=== PATIENT | female | born 1950 | race Caucasian/White ===

== ENCOUNTER 2020-11-13 13:00 | Day surgery (SDC) | payer BC ==
[~2020-11-13] VITALS: Ht 165.1 cm; Wt 80.7 kg
[2020-11-13] MEDS ORDERED: LISINOPRIL20 MG PO (13:25)
[2020-11-13] MEDS ORDERED: POTASSIUM CITR10 MEQ PO (13:25)
[2020-11-13] MEDS ORDERED: ATORVASTATIN CA20 MG PO (13:25)
[2020-11-13] MEDS ORDERED: METOPROLOL SUCC50 MG PO (13:25)
[2020-11-13] MEDS ORDERED: YUVAFEM10 MCG PV (13:26)
--- NOTE | 2020-11-13 14:47 | NUR ---
11/13/20 Nova[facility] Velia Munoz 1445- PT TO PACU IN LL POSITION. OPENS EYES TO VERBAL STIMULI. DENIES PAIN. PT ENCOURAGED TO PASS GAS. BREATHING EASY AND UNLABORED. SPO2 >95% ON 3 L O2 VIA NASAL CANULA.
--- NOTE | 2020-11-14 08:55 | OR ---
[facility] [address], [place] [address] Signed DATE OF OPERATION: 11/13/2020 SURGEON: Esther Del Rosario MD PREOPERATIVE DIAGNOSIS: History of polyps and known diverticulosis. POSTOPERATIVE DIAGNOSIS: Sigmoid diverticulosis. No evidence of polyps. PROCEDURE: Total colonoscopy to cecum. ANESTHESIA: Intravenous sedation; fentanyl 200 mcg and Versed 6 mg. INDICATION: This 70-year-old white woman is a patient of Dr. Mujica and is here for colon surveillance. She last underwent colonoscopy by me in 2008. She has had several colonoscopies by Dr. Sanders at [facility] in [place] with at least 1 polyp identified as well as diverticular changes. She is currently symptom free, having no bleeding, diarrhea, or constipation and has no known family history of colon cancer. She is here for surveillance colonoscopy understanding the risks of bleeding, infection, and perforation. Understanding these risks, she wished to proceed. FINDINGS: The prep was good. She had a MiraLAX base prep preoperatively. Complete colonoscopy was undertaken to the cecum without question. There was no evidence of recurrent polyp, only diverticular changes of sigmoid and left colon. DESCRIPTION OF PROCEDURE: The patient was brought to the endoscopy suite and placed in lateral decubitus position, given intravenous sedation to the point of slurred speech and nystagmus with full cardiopulmonary monitoring. Digital rectal examination was normal. An Olympus video colonoscope was passed in the rectum and manipulated into the sigmoid. Various maneuvers were undertaken, but passage beyond the sigmoid initially was slightly challenging and therefore the scope was removed and pediatric colonoscope then obtained and reapplied. The scope was passed up to this spot and with various maneuvers, manipulated past the sigmoid colon. Numerous diverticula were noted in this area. The Electronically Signed By: ESTHER DEL ROSARIO MD 11/14/20 0855 PATIENT NAME: FERNANDO PICKETT OPERATIVE REPORT DATE OF : 54 REPORT #: [id number] PHYSICIAN: ESTHER DEL ROSARIO MD PCP: YNES MUJICA MD REPORT IS CONFIDENTIAL AND NOT TO BE RELEASED WITHOUT AUTHORIZATION [facility] [address], [place] [address] Signed scope was ultimately advanced to the cecum without issue. The ileocecal valve and appendiceal orifice were normal. The bowel prep was adequate. The scope was withdrawn from that point and examination throughout showed no sign of polyps, colitis, or other abnormality other than diverticular change of the sigmoid and left colon. Retroflexed view of the rectum was normal. Scope was removed and the patient was taken to the recovery room in good condition. CONCLUDING DIAGNOSIS: Diverticulosis, no evidence of polyps. PLAN: Recommend repeat colonoscopy in 5 years sooner if clinically indicated (bleeding, diarrhea, constipation, etc.) She will return to the ongoing care of Dr. Mujica. MD CORTEZ Ayala/VANESA /[id number] cc: MD Dr. Tommy Segura [facility] Copies: YNES MUJICA MD ~ Electronically Signed By: ESTHER DEL ROSARIO MD 11/14/20 0855 PATIENT NAME: FERNANDO PICKETT [facility] OPERATIVE REPORT DATE OF : 54 REPORT #: [id number] PHYSICIAN: ESTHER DEL ROSARIO MD PCP: YNES MUJICA MD REPORT IS CONFIDENTIAL AND NOT TO BE RELEASED WITHOUT AUTHORIZATION
== END 2020-11-13 15:30 | disposition home or self-care (01) ==
LOC: OPS 13:00 → DS 13:00 → OPS 14:00 → DS 14:00 → OPS 15:30
PROVIDERS: ATTEND Surgery
PROC: 0DJD8ZZ Inspection of Lower Intestinal Tract, Via Natural or Artificial Opening Endoscopic (ICD-10-PCS; principal; 2020-11-13 14:00)
DX: Z12.11 Encounter for screening for malignant neoplasm of colon (principal); K57.30 Diverticulosis of large intestine without perforation or abscess without bleeding; I10 Essential (primary) hypertension; E78.5 Hyperlipidemia, unspecified; N20.0 Calculus of kidney; Z86.010 Personal history of colon polyps
CPT/HCPCS: 99153; G0500; J2250; J3010; J7121